=== PATIENT | female | born 1995 ===

== ENCOUNTER 2024-04-20 07:18 | Day surgery (SDC) | payer OTHER ==
[2024-04-19 11:10] LABS: URINE APPEARANCE Clear; URINE BILIRRUBIN Negative (NEGATIVE); URINE BLOOD Negative; URINE COLOR Yellow; URINE GLUCOSE Negative (NEGATIVE); URINE KETONE Negative (NEGATIVE); URINE LEUKOCYTE Small; URINE NITRATE Negative; URINE PROTEIN Negative (NEGATIVE); URINE UROBILINOGEN 0.2 E.U./dl
[2024-04-19 11:13] VITALS: BP 130/81
[2024-04-19 11:18] LABS: URINE BACTERIA 198.9 uL (0.0-1933); URINE EPITHELIAL CELLS 10.1 uL (0.0-38.8); URINE WBC 14.9 uL (0.0-23.2)
[2024-04-19 11:35] LABS: HEMATOCRIT 41.7 % (36.0-45.00); HEMOGLOBIN 14.4 g/dL (12.0-15.00); MEAN CELL VOLUME 97.6 fL (80.00-100.00); MEAN CORPUSCULAR HEMOGLOBIN 33.7 pg (27.00-32.0); MEAN CORPUSCULAR HGB CONC 34.5 g/dl (32.0-36.0); PLATELET COUNT 264 K/uL (150-450); RED BLOOD COUNT 4.27 M/uL (4.00-6.00); RED CELL DISTRIBUTION WIDTH 12.4 % (11.5-14.5)
[2024-04-19 11:39] LABS: URINE CAST 0.15 uL (0.0-1.40); URINE RBC 0.3 uL (0.0-20.8)
[2024-04-19 12:01] LABS: ALBUMIN 4.3 gm/dL (3.4-5.0); BILIRUBIN TOTAL 0.4 mg/dL (0.3-1.2); CALCIUM 9.7 mg/dL (8.5-10.1); CREATININE SERUM 0.7 mg/dL (0.55-1.02); GFR 98.93; GLOBULINA 3.4 G/DL (2.4-3.5); POTASSIUM 4.41 mEq/L (3.5-5.1); TOTAL PROTEIN 7.7 gm/dL (6.4-8.2)
[2024-04-19 12:36] LABS: INR 0.99; PROTHROMBIN TIME 10.3 SECONDS (9.0-11.5)
[~2024-04-20] VITALS: Ht 154.9 cm; Wt 90.3 kg
[~2024-04-20 07:18] MED LIST: ATORVASTATIN CA10 MG PO
== END 2024-04-20 20:25 | disposition home or self-care (01) ==
LOC: CIR.AMB 07:18
PROVIDERS: ATTEND Orthopaedic Surgery Hand Surgery
DX: D21.12 Benign neoplasm of connective and other soft tissue of left upper limb, including shoulder (principal); Z91.040 Latex allergy status